=== PATIENT | female | born 1945 | race Caucasian/White ===

== ENCOUNTER 2019-06-09 14:40 | Emergency (ER) | payer MEDICARE, BC ==
[2019-06-09] MEDS ORDERED: Acetaminophen 500 MG Tab PO ONE (15:15)
--- NOTE | 2019-06-09 15:21 | EDM.PDOC ---
ED HPI GENERAL MEDICAL PROBLEM - General Chief Complaint: Head Injury Stated Complaint: FELL AND HIT HEAD Time Seen by Provider: 06/09/19 15:05 Source of Information: Reports: Patient History Limitations: Reports: No Limitations - History of Present Illness INITIAL COMMENTS - FREE TEXT/NARRATIVE: 73 [place] and hit her head. There was dizziness and mild nausea initially, but no LOC. She is not on any blood thinners. Injury about 1 hr and 45 min ago. No self tx. No neck pain. Has a lump on her L side and posteriorly. Onset: Today Onset Date: 06/09/19 Onset Time: 13:30 Duration: Minutes: Location: Reports: Head Quality: Reports: Ache Severity: Moderate Improves with: Reports: None Worsens with: Reports: None Context: Reports: Trauma Associated Symptoms: Reports: No Other Symptoms. Denies: Nausea/Vomiting Treatments FAMILY HELPER: Reports: Other (see below) (none) ED ROS GENERAL - Review of Systems Review Of Systems: See Below Constitutional: Reports: No Symptoms HEENT: Reports: No Symptoms Respiratory: Reports: No Symptoms Cardiovascular: Reports: No Symptoms GI/Abdominal: Reports: Nausea (now gone) : Reports: No Symptoms Musculoskeletal: Reports: No Symptoms Skin: Reports: No Symptoms Neurological: Reports: Dizziness (mild), Headache. Denies: Confusion, Seizure, Syncope, Trouble Speaking, Difficulty Walking Psychiatric: Reports: No Symptoms ED EXAM, HEAD INJURY - Physical Exam Exam: See Below Exam Limited By: No Limitations General Appearance: Alert, WD/WN, No Apparent Distress Head: Atraumatic, Normocephalic Eyes: Bilateral Eye: EOMI, Normal Inspection, PERRL Ears: Normal External Exam, Normal Canal, Hearing Grossly Normal, Normal TMs Nose: Normal Inspection, No Blood Throat/Mouth: Normal Inspection, Normal Lips, Normal Oropharynx, Normal Voice, No Airway Compromise Neck: Non-Tender, Full Range of Motion, Normal Inspection Respiratory: No Respiratory Distress, Lungs Clear, Normal Breath Sounds, No Accessory Muscle Use Cardiovascular: Regular Rate, Rhythm, No Edema Extremities: Normal Inspection 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 nml As Tested, No Motor/Sensory Deficits, Alert, Normal Mood/Affect, Oriented x 3 Skin: Normal Color, Warm/Dry - [place] Coma Score Best Eye Response ([place]): (4) Open Spontaneously Best Verbal Response (Yrn): (5) Oriented Best Motor Response (Yrn): (6) Obeys Commands [place] Total: 15 Course - Vital Signs Last Recorded V/S: Last Vital Signs Temp 36.7 C 06/09/19 14:59 Pulse 63 06/09/19 14:59 Resp 20 06/09/19 14:59 BP 161/81 H 06/09/19 14:59 Pulse Ox 92 L 06/09/19 14:59 - Orders/Labs/Meds Orders: Active Orders 24 hr Category Date Time Status Acetaminophen [Tylenol Extra Strength] Med 06/09/19 15:15 Once 1,000 mg PO ONETIME ONE Departure - Departure Time of Disposition: 15:19 Disposition: Home, Self-Care 01 Condition: Good Clinical Impression: Mild concussion Qualifiers: Encounter type: initial encounter Loss of consciousness presence/duration: without LOC Qualified Code(s): S06.0X0A - Concussion without loss of consciousness, initial encounter Scalp contusion Qualifiers: Encounter type: initial encounter Qualified Code(s): S00.03XA - Contusion of scalp, initial encounter - Discharge Information *PRESCRIPTION DRUG MONITORING PROGRAM REVIEWED*: No *COPY OF PRESCRIPTION DRUG MONITORING REPORT IN PATIENT KARIE: No Instructions: Concussion, Adult, [id number] Referrals: PCP,None [Primary Care Provider] - Additional Instructions: Acetaminophen and/ibuprofen as needed for ESCOBEDO. Rest in a horizontal position. No exertion until your ESCOBEDO is fully resolved. Recheck if worse. - My Orders Last 24 Hours: My Active Orders 06/09/19 15:15 Acetaminophen [Tylenol Extra Strength] 1,000 mg PO ONETIME ONE - Assessment/Plan Last 24 Hours: My Active Orders 06/09/19 15:15 Acetaminophen [Tylenol Extra Strength] 1,000 mg PO ONETIME ONE
== END 2019-06-09 15:34 | disposition home or self-care (01) ==
LOC: JP.ED 14:40
DX: S06.0X0A Concussion without loss of consciousness, initial encounter (principal); W18.39XA Other fall on same level, initial encounter
CPT/HCPCS: 99283; A9270; 99282